=== PATIENT | female | born 2000 | race Caucasian/White ===

== ENCOUNTER 2022-06-10 23:22 | Emergency (ER) | payer OTHER ==
[~2022-06-10] VITALS: Ht 172.7 cm; Wt 76.2 kg
--- NOTE | 2022-06-10 23:28 | NUR ---
Placed in room 3 . Placed on playground monitor, blood pressure machine and pulse oximeter. To gown for exam. Side rails up. Report given to JARED RAMIREZ.
[2022-06-10 23:29] VITALS: BP_SYST 96
[2022-06-10] MEDS ORDERED: NACL 0.9% 2,000 ML IV ONE (23:30)
--- NOTE | 2022-06-10 23:30 | NUR ---
DIEUDONNE Kilgore at bedside.
--- NOTE | 2022-06-10 23:45 | NUR ---
Patient presents to ED from home c/o low blood pressure and near syncope. Patient A/Ox4, ambulatory, resp even and unlabored. Patient has intact 18G IV in left AC placed by [facility]; currently has NS TKO given by [facility]. Patient has received approx 700ml at this time. Patient denies pain; 0/10 at this time. Patient states "I didnt get drunk or anything, but I did have 2 glasses of wine while I was in the [place]. I felt dizzy and then I felt like I was going to faint. I called 911 to take me to the ER cause I got scared. But I feel okay now." NAD noted at this time.
--- NOTE | 2022-06-11 | NUR ---
Patient resting comfortably in bed with side rails raised. Patient given a second warm blanket per patient request. Nad noted at this time.
[2022-06-11 00:52] LABS: HEMATOCRIT 40.8 % (36-48)
[2022-06-11 01:09] LABS: ANION GAP 10 (5-15); CALCIUM 7.8 mg/dL (8.4-11.0); CHLORIDE 108 mmol/L (98-107); CREATININE 1.03 mg/dL (0.55-1.30); GLUCOSE 113 mg/dL (70-99); POTASSIUM 3.4 mmol/L (3.5-5.1); SODIUM SERUM 142 mmol/L (136-145); UREA NITROGEN, BLOOD 12 mg/dL (8-21)
[2022-06-11 01:12] LABS: GFR AFRICAN AMERICAN 87 mL/min (>90)
[2022-06-11 01:18] LABS: BASOPHILS % (AUTO) 0.1 % (0.0-2.0); EOSINOPHILS # (AUTO) 0.1 K/uL (0.0-0.4); EOSINOPHILS % (AUTO) 0.6 % (0.0-4.0); LYMPHOCYTES # (AUTO) 2.6 K/uL (1.0-5.5); LYMPHOCYTES % (AUTO) 24.4 % (20.5-51.5); MEAN CORPUSCULAR VOLUME 91 fL (79.0-98.0); MONOCYTES # (AUTO) 0.3 K/uL (0.0-1.0); MONOCYTES % (AUTO) 2.5 % (1.7-9.3); NEUTROPHILS # (AUTO) 7.8 K/uL (1.8-7.7); NEUTROPHILS % (AUTO) 72.4 % (40.0-70.0); PLATELET COUNT (AUTO) 337 K/uL (130-430); RED BLOOD CELL COUNT(AUTO) 4.49 MIL/uL (4.2-6.2); RED CELL DISTRIBUTION WIDTH 14.2 % (9.0-15.0); WHITE BLOOD COUNT (AUTO) 10.8 K/uL (4.8-10.8)
[2022-06-11 01:24] LABS: ALANINE AMINOTRANSFERASE 14 U/L (12-78); ALBUMIN 2.8 g/dL (3.4-4.8); ALCOHOL, BLOOD 17 mg/dL (<10); ASPARTATE AMINOTRANSFERASE 14 U/L (10-37); TOTAL BILIRUBIN 0.3 mg/dL (0.0-1.0)
[2022-06-11 01:25] LABS: HCG,QUAL RESULT NEGATIVE (NEGATIVE)
[2022-06-11 01:25] LABS: BILIRUBIN,URINE NEGATIVE (NEGATIVE); BLOOD, URINE 1+ (NEGATIVE); COLOR,URINE YELLOW (YELLOW); GLUCOSE,URINE NEGATIVE (NEGATIVE); KETONES,URINE NEGATIVE (NEGATIVE); LEUKOCYTE ESTERASE ,URINE NEGATIVE (NEGATIVE); NITRITE, URINE NEGATIVE (NEGATIVE); PROTEIN URINE 1+ (NEGATIVE); UROBILINOGEN,URINE 0.2 (0.2-1.0)
[2022-06-11 01:34] LABS: CLARITY/URINE HAZY (CLEAR)
[2022-06-11 01:42] LABS: BACTERIA,URINE FEW /HPF (None Seen); MUCUS,URINE 1+ /LPF (None Seen); WBC,URINE 0-3 /HPF (0-3)
[2022-06-11 01:45] LABS: BARBITURATE, URINE NEGATIVE (NEG <=200); BENZODIAZEPINE, URINE NEGATIVE (NEG <=150); CANNABINOID, URINE NEGATIVE (NEG <=50); COCAINE, URINE NEGATIVE (NEG <=150); METHAMPHETAMINES SCREEN,URINE NEGATIVE (NEG <=500); OPIATE, URINE NEGATIVE (NEG <=100); PHENCYCLIDINE SCREEN,URINE NEGATIVE (NEG <=25); UR TRICYCLIC ANTIDEPRESSANTS NEGATIVE (NEG <=300); URINE AMPHETAMINE NEGATIVE (NEG <=500); URINE METHADONE NEGATIVE (NEG <=200); URINE OXYCODONE SCREEN NEGATIVE (NEG <=100); URINE PROPOXYPHENE SCREEN NEGATIVE (NEG <=300)
--- NOTE | 2022-06-11 03:15 | NUR ---
ER MD Kilgore at bedside speaking with patient regarding lab results.
--- NOTE | 2022-06-11 03:30 | NUR ---
Per ER MD Kilgore orders, ortho blood pressure taken at this time. See interventions for vitals
--- NOTE | 2022-06-11 03:40 | NUR ---
ER MD Kilgore notified of patient's orthostatic blood pressure V/S; no new orders given at this time.
[2022-06-11] MEDS ORDERED: predniSONE 20 MG TABLET PO ONE (03:45)
[2022-06-11] MEDS ORDERED: predniSONE 20 MG TABLET ONE (03:51)
[2022-06-11] MEDS ORDERED: EPIN0.3P3 IM (04:23)
[2022-06-11] MEDS ORDERED: PRED20TA PO (04:23)
[2022-06-11] MEDS ORDERED: DIPH25CA83 PO (04:23)
[2022-06-11 04:29] VITALS: BP_SYST 122
--- NOTE | 2022-06-11 04:29 | NUR ---
Patient given written and verbal discharge instructions and verbalizes understanding. ER MD discussed with patient the results and treatment provided. Patient in stable condition. ID arm band removed. IV catheter removed intact and dressing applied, no active bleeding. Rx of Benadryl, Epi pen, and Prednisone given. Patient educated on pain management and to follow up with PMD. Pain Scale 0/10. Opportunity for questions provided and answered. Medication side effect fact sheet provided. Patient A/Ox4, VSS, ambulatory, resp even and unlabored. Patient in stable condition upon discharge. Patient accompanied by roomate upon discharge. Nad noted at this time.
== END 2022-06-11 04:29 | disposition home or self-care (01) ==
LOC: SED 23:22
DX: R55 Syncope and collapse (principal); E86.0 Dehydration; R03.0 Elevated blood-pressure reading, without diagnosis of hypertension; R42 Dizziness and giddiness; Z79.899 Other long term (current) drug therapy
CPT/HCPCS: 99284; 80307; 80053; 84703; 85025; 87040; 84484; 36415; 83605; 81000; 96360; 71045; G0482; J7512; J7030